=== PATIENT | male | born 1980 | race Caucasian/White ===

== ENCOUNTER 2018-10-10 18:54 | Emergency (ER) | payer MEDICAID ==
[~2018-10-10] VITALS: Ht 170.2 cm; Wt 72.6 kg
[2018-10-10 18:58] VITALS: BP 140/94
--- NOTE | 2018-10-10 21:13 | NUR ---
PT AMBULATED TO BED 4 AT THIS TIME
--- NOTE | 2018-10-10 21:15 | NUR ---
38 Y/O M W/ C/O L EYE PAIN S/P WORKING ON SINK IN HOUSE THIS MORNING. EYE REDDENED, NO DISCHARGE. AAOX4, PERRL, WITH EVEN AND STEADY GAIT; PT DENIES ANY FEVER, CP, SOB, OR COUGH AT THIS TIME; PT STATES 7/10 PAIN AT THIS TIME; VSS; PATIENT POSITIONED FOR COMFORT; HOB ELEVATED; BEDRAILS UP X2; BED DOWN.
[2018-10-10] MEDS ORDERED: FLUORESCEIN OPTH STRIP 0.6 MG OP ONE (21:40)
[2018-10-10] MEDS ORDERED: TETRACAINE HCL/PF 0.5% OPTH 4 ML BTL OP ONE (21:40)
--- NOTE | 2018-10-10 22:01 | NUR ---
Dr. Patotn evaluating patient at bedside.
[2018-10-10 22:50] VITALS: BP 130/82
--- NOTE | 2018-10-10 22:50 | NUR ---
Patient discharged with v/s stable. Written and verbal after care instructions given and explained. Patient alert, oriented and verbalized understanding of instructions. Ambulatory with steady gait. All questions addressed prior to discharge. ID band removed. Patient advised to follow up with PMD. Rx of NAPROSYN, TOBRAMYCIN, TYLENOL W/ CODIENE WAS given. Patient educated on indication of medication including possible reaction and side effects. Opportunity to ask questions provided and answered.
--- NOTE | 2018-10-10 22:50 | NUR ---
OS 20. OD 20/40 OU 20/
== END 2018-10-10 22:50 | disposition home or self-care (01) ==
LOC: MED 18:54
DX: S05.02XA Injury of conjunctiva and corneal abrasion without foreign body, left eye, initial encounter (principal); X58.XXXA Exposure to other specified factors, initial encounter; Y93.89 Activity, other specified; Y92.098 Other place in other non-institutional residence as the place of occurrence of the external cause; Y99.8 Other external cause status
CPT/HCPCS: 99283